=== PATIENT | female | born 1960 | race Caucasian/White ===

== ENCOUNTER 2022-03-14 15:03 | Outpatient (CLI) | payer MEDICARE, OTHER | END 2022-03-14 15:04 | disposition home or self-care (01) | LOC: CSHCT 15:03 | PROVIDERS: ATTEND Psychiatry & Neurology Neurology | DX: G40.209 Localization-related (focal) (partial) symptomatic epilepsy and epileptic syndromes with complex partial seizures, not intractable, without status epilepticus (principal) | CPT/HCPCS: 70450 ==

== ENCOUNTER 2022-10-16 14:35 | Outpatient (CLI) | payer MEDICARE, MEDICAID | END 2022-10-16 14:36 | disposition home or self-care (01) | LOC: CSHMAMMO 14:35 | PROVIDERS: ATTEND Family Medicine | DX: Z12.31 Encounter for screening mammogram for malignant neoplasm of breast (principal) | CPT/HCPCS: 77063; 77067 ==